=== PATIENT | female | born 1965 | race African-American/Black ===

== ENCOUNTER 2017-01-18 18:51 | Emergency (ER) | payer BC ==
[~2017-01-18] VITALS: Ht 170.2 cm; Wt 104.8 kg
[2017-01-18 19:48] LABS: HEMATOCRIT 39.6 % (36.0-46.0); MCH 29.8 PG (29.0-34.0); MCHC 32.3 G/DL (30.0-36.0); MCV 92.3 FL (83-99); MEAN PLAT.VOLUME 9.6 uM^3 (9.5-12.4); PLATELET COUNT 315 K/uL (156-360); RBC DIS.WIDTH-CV 13.2 % (11.8-14.6); RBC DIS.WIDTH-SD 44.6 % (39-53); RED BLOOD COUNT 4.29 M/uL (3.80-5.20); WHITE BLOOD COUNT 6.4 K/uL (4.1-10.2)
[2017-01-18 20:09] LABS: CHLORIDE 105 mEq/L (99-109); POTASSIUM 3.7 mEq/L (3.7-5.4); SODIUM 139 mEq/L (136-147)
[2017-01-18 20:10] LABS: GLUCOSE 87 mg/dL (70-99)
[2017-01-18 20:12] LABS: ANION GAP 10 MEQ/L (2-14)
[2017-01-18 20:15] LABS: TROP-I INTERPRETATION NEGATIVE; TROPONIN-I < 0.01 ng/mL (0.0-0.30); UREA NITROGEN (BUN) 11 mg/dL (9-23)
[2017-01-18 20:17] LABS: GFR ESTIMATE (CALCULATED) > 59 mL/min/
[2017-01-18] MEDS ORDERED: KENALOG,ARISTOC80 GM TP (20:50)
[2017-01-18 21:18] VITALS: BP 133/83
== END 2017-01-18 21:21 | disposition home or self-care (01) ==
LOC: EME 18:51 → EXP 18:51
DX: R07.89 Other chest pain (principal); L30.9 Dermatitis, unspecified
CPT/HCPCS: 71020; 80048; 84484; 85027; 93005; 99281; 99283